=== PATIENT | female | born 1990 | race Caucasian/White ===

== ENCOUNTER → 2019-01-18 | Outpatient (CLI) | payer OTHER ==
--- NOTE | 2019-01-18 13:28 | US ---
EXAMINATION TYPE: Transabdominal DATE OF EXAM: 01/18/2019 1:06 PM COMPARISON: NONE CLINICAL HISTORY: Z36 CONFIRM DATES. dates EXAM PERFORMED: OBTA EXAM MEASUREMENTS: GESTATIONAL AGE / DATING Physician Established: (9 weeks/4 days) EDC: 08/19/2019 Dates by LMP: LMP unknown Dates by First Scan: No previous this is first scan Dates by Current Scan for: (9 weeks/5 days) EDC: 08/18/2019 MATERNAL ANATOMY Uterus: 10.0 x 6.7 x 6.4 Right Ovary: 2.4 x 2.3 x 1.9 Left Ovary: not seen due to bowel gas Post CDS / Adnexa: wnl Presence of free fluid: no Presence of corpus luteal cyst: yes, right = 1.0cm Presence of subchorionic bleed: no GESTATION / SURVEY CRL: 2.9 (9 weeks/5 days) MSD: wnl Yolk Sac (normal less than 6mm): not seen Heart Rate: 174 bpm Rhythm: Normal IUP: Live IUP IMPRESSION: Single live intrauterine has a sonographic age of 9 weeks and 5 days concordant with menstr ual age. Estimated date of delivery of 08/18/2019. Left ovary is not seen due to overlying bowel gas.
== END | disposition home or self-care (01) ==
LOC: RADUSWWP 12:47
PROVIDERS: ATTEND Obstetrics & Gynecology
DX: Z36.9 Encounter for antenatal screening, unspecified (principal); Z3A.09 9 weeks gestation of pregnancy
CPT/HCPCS: 76801

== ENCOUNTER 2019-08-07 11:24 | Inpatient (IN) | payer OTHER ==
[2019-08-07 12:18] LABS: Appearance,Urine Clear (Clear); Bacteria,Urine Rare /hpf; Bilirubin,Urine Negative (Negative); Blood,Urine Negative (Negative); Color,Urine Light Yellow; Glucose,Urine (UA) Negative (Negative); Hyaline Casts,Urine 1 /lpf (0-2); Ketones,Urine Negative (Negative); Leukocyte Esterase,Urine Small (Negative); Mucus,Urine Rare /hpf; Nitrite,Urine Negative (Negative); PH, Urine 7.5 (5.0-8.0); Protein,Urine 2+ (Negative); RBC,Urine <1 /hpf (0-5); Specific Gravity,Urine 1.017 (1.001-1.035); Squamous Epithelial Cell,Urine 7 /hpf (0-4); Urobilinogen,Urine <2.0 mg/dL (<2.0); WBC,Urine 5 /hpf (0-5)
[2019-08-07 12:33] LABS: Creatinine,Urine Random 73.7 mg/dL
[2019-08-07 13:04] LABS: Basophils % (A) 0 %; Eosinophils # (A) 0.2 k/uL (0-0.7); Eosinophils % (A) 2 %; HCT 33.8 % (34.0-46.0); HGB 10.8 gm/dL (11.4-16.0); Hypochromasia Moderate; Lymphocytes # (A) 2.1 k/uL (1.0-4.8); Lymphocytes % (A) 20 %; MCH 25.9 pg (25.0-35.0); MCV 80.8 fL (80.0-100.0); Monocytes # (A) 0.4 k/uL (0-1.0); Monocytes % (A) 3 %; Neutrophils # (A) 7.7 k/uL (1.3-7.7); Neutrophils % (A) 73 %; Platelet Count 283 k/uL (150-450); RBC 4.18 m/uL (3.80-5.40); RDW 15.4 % (11.5-15.5); WBC 10.6 k/uL (3.8-10.6)
[2019-08-07 13:12] LABS: ALT 10 U/L (4-34); AST 21 U/L (14-36); African American GFR (CKD) >90 (>60 ml/min/1.73 sqM); Blood Urea Nitrogen 9 mg/dL (7-17); LDH 474 U/L (313-618); Non-African American GFR(CKD) >90 (>60 ml/min/1.73 sqM); Uric Acid 7.8 mg/dL (3.7-7.4)
[2019-08-07 13:21] LABS: Protein/Creatinine Ratio,Urine 3.392
[2019-08-07] MEDS: LACTATED RINGERS 1,000 ML IV SCH ×2 (13:30→19:05)
[2019-08-07] MEDS ORDERED: OXYTOCIN 10 UNIT/ML 1 ML VIAL IM PRN (13:50)
[2019-08-07] MEDS ORDERED: CARBOPROST TROMETHAMINE 250 MCG/ML 1 ML AMP IM PRN (13:50)
[2019-08-07] MEDS ORDERED: TERBUTALINE 1 MG/ML VIAL SQ PRN (13:50)
[2019-08-07] MEDS ORDERED: METHYLERGONOVINE 0.2 MG/ML 1 ML AMP IM PRN (13:50)
[2019-08-07] MEDS ORDERED: LIDOCAINE 0.5% (PF) 5 MG/ML (50 ML SDV) SQ PRN (13:50)
[2019-08-07] MEDS ORDERED: OXYTOCIN 30 UNITS/500 ML NS 30 UNIT in SALINE 1 500ML.BAG IV SCH (14:00)
[2019-08-07 14:27] LABS: Glucose,Whole Blood 74 mg/dL (75-99)
[2019-08-07] MEDS ORDERED: BUTORPHANOL 1 MG/ML 1 ML VIAL IV PRN (18:22)
[2019-08-07] MEDS ORDERED: ROPIVACAINE 100 MG, fentaNYL (PF) 200 MCG in SODIUM CHLORIDE 0.9% 76 ML EPIDURAL ONE (19:06)
--- NOTE | 2019-08-07 22:38 | P.HPOB ---
History of Present Illness H&P Date: 08/07/19 Chief Complaint: nausea and inc BP 28-year-old presents at 38 weeks and 2 days complaining of nausea. She went to work today, and her doctor's office, where she felt dizzy and nauseous. Her coworkers took her blood pressure and it was elevated so she came to triage. Her blood pressures were elevated here and her PC ratio is 3.3. She is admitted for induction of labor due to preeclampsia. Her cervix is 2 cm dilated, 70% effaced, and -2 station. She is naty rarely. heart tones 135 with moderate variability and reactive. Patient denies headache, chest pain, vision changes, right upper quadrant pain, shortness of breath or calf pain. Review of Systems All systems: negative Constitutional: Denies chills, Denies fever Eyes: denies blurred vision, denies pain Ears, nose, mouth and throat: Denies headache, Denies sore throat Cardiovascular: Denies chest pain, Denies shortness of breath Respiratory: Denies cough Gastrointestinal: Denies abdominal pain, Denies diarrhea, Denies nausea, Denies vomiting Genitourinary: Denies dysuria, Denies hematuria Musculoskeletal: Denies myalgias Integumentary: Denies pruritus, Denies rash Neurological: Denies numbness, Denies weakness Psychiatric: Denies anxiety, Denies depression Endocrine: Denies fatigue, Denies weight change Past Medical History Past Medical History: No Reported History History of Any Multi-Drug Resistant Organisms: None Reported Past Surgical History: No Surgical Hx Reported Additional Past Surgical History / Comment(s): [place] teeth removal Past Anesthesia/Blood Transfusion Reactions: No Reported Reaction Past Psychological History: No Psychological Hx Reported Smoking Status: Never smoker Past Alcohol Use History: None Reported Past Drug Use History: None Reported - Past Family History Mother Family Medical History: Diabetes Mellitus Medications and Allergies Home Medications Medication Instructions Recorded Confirmed Type Pnv No.95/Ferrous Fum/Folic AC 1 tab PO DAILY 08/07/19 08/07/19 History [ Multivitamin Tablet] metFORMIN HCL 500 mg PO BID 08/07/19 08/07/19 History Allergies Allergy/AdvReac Type Severity Reaction Status Date / Time No Known Allergies Allergy Verified 08/07/19 11:41 Exam Osteopathic Statement: *. No significant issues noted on an osteopathic structural exam other than those noted in the History and Physical/Consult. Vital Signs Temp Pulse Resp BP Pulse Ox 08/07/19 13:39 97.3 F L 70 16 148/88 97 08/07/19 12:01 97.3 F L 70 16 148/88 97 Intake and Output 08/07/19 08/07/19 08/07/19 06:59 14:59 22:59 Other: # Voids 2 Weight 94.801 kg Heart: Regular rate and rhythm Lungs: Clear to auscultation bilaterally Abdomen: Soft, nontender Extremities: Negative Homans sign, 2+/4 DTR Results Result Diagrams: 08/07/19 12:53 08/07/19 12:53 Abnormal Lab Results - Last 24 Hours (Table) 08/07/19 08/07/19 08/07/19 Range/Units 11:52 11:52 12:53 Hgb 10.8 L (11.4-16.0) gm/dL Hct 33.8 L (34.0-46.0) % POC Glucose (mg/dL) (75-99) mg/dL Uric Acid (3.7-7.4) mg/dL Urine Protein 2+ H (Negative) Ur Leukocyte Esterase Small H (Negative) Ur Squamous Epith Cells 7 H (0-4) /hpf Urine Bacteria Rare H (None) /hpf Urine Mucus Rare H (None) /hpf U Random Total Protein 252 H (<12) mg/dL 08/07/19 08/07/19 Range/Units 12:53 14:25 Hgb (11.4-16.0) gm/dL Hct (34.0-46.0) % POC Glucose (mg/dL) 74 L (75-99) mg/dL Uric Acid 7.8 H (3.7-7.4) mg/dL Urine Protein (Negative) Ur Leukocyte Esterase (Negative) Ur Squamous Epith Cells (0-4) /hpf Urine Bacteria (None) /hpf Urine Mucus (None) /hpf U Random Total Protein (<12) mg/dL Assessment and Plan (1) Pre-eclampsia affecting , antepartum Current Visit: Yes Status: Acute Code(s): O14.90 - UNSPECIFIED PRE- ECLAMPSIA, UNSPECIFIED TRIMESTER SNOMED Code(s): 230735184 (2) 38 weeks gestation of Current Visit: Yes Status: Acute Code(s): Z3A.38 - 38 WEEKS GESTATION OF JASON [place]AP[place] SNOMED Code(s): 63527837 Plan: 1. Induction of labor with amniotomy and Pitocin 2. Anticipate normal vaginal delivery 3. Monitor blood pressures closely
--- NOTE | 2019-08-07 23:19 | P.MSEPDOC ---
Presenting Problems - Arrival Data Date of Arrival on Unit: 08/07/19 Time of Arrival on Unit: 11:24 Mode of Transport: Ambulatory - Complaint OB-Reason for Admission/Chief Complaint: PIH Comment: cramping, nausea, and high blood pressures Medical History - Information : 2 Para: 0 Term: 0 : 0 Abortions: Spontaneous or Elective: 1 Number of Living Children: 0 - Gestational Age Gestational Age by TAMIR (wks/days): 38 Weeks and 2 Days - History Complications: GDM Review of Systems - Review of Systems Constitutional: No problems Breast: No problems ENT: No problems Cardiovascular: No problems Respiratory: No problems Gastrointestinal: No problems Genitourinary: No problems Musculoskeletal: No problems Neurological: No problems Skin: No problems Comment: bilateral ankle edema Vital Signs - Temperature Temperature: 97.3 F Temperature Source: Temporal Artery Scan - Pulse Pulse Oximetery Pulse Rate: 70 Pulse Assessment Method: Pulse Oximetry - Respirations Respiratory Rate: 16 Oxygen Delivery Method: Room Air O2 Sat by Pulse Oximetry: 97 - Blood Pressure Right Arm Blood Pressure: 148/88 Blood Pressure Mean: 108 Blood Pressure Source: Automatic Cuff Medical Screen Scoring (Pre) - Cervical Exam Dilation: 1-3 cm = 1 Effacement: More than 50% = 2 Membranes: Intact - Uterine Contractions Frequency: > 5 minutes apart = 1 Duration: > 40 seconds = 2 Intensity: N/A - Maternal Vital Signs Maternal Temperature: N/A Maternal Blood Pressure: Systolic >139 = 2 Signs of Preeclampsia: Nausea/Vomiting = 1 Maternal Respirations: N/A - Maternal Trauma Maternal Trauma: N/A - Assessment - Baby A Baseline FHR: 145 Heart Rate - NICHD Category: Category I (Normal) = 0 NST: Reactive Position: N/A Station: N/A - Total Score - Baby A Total Score - Baby A: 9 - Total Score - Baby B Total Score - Baby B: 9 - Total Score - Baby C Total Score - Baby C: 9 - Level of Risk - Baby A Level of Risk - Baby A: Medium (6-9) - Level of Risk - Baby B Level of Risk - Baby B: Medium (6-9) - Level of Risk - Baby C Level of Risk - Baby C: Medium (6-9) Physician Notification (Pre) - Physician Notified Physician Notified Date: 08/07/19 Physician Notified Time: 12:01 New Order Received: Yes - Notification Comment Comment: Dr. Whittington called, report given on maternal and status, pt complains of. cramping, nausea, and increased blood pressures. Pt has no other PIH symptoms, reflexes. are WNL, BPs are 148/88, 148/90, 151/101, and 156/96, NST is reactive. SVE 1.5/60%. Orders to obtain all PIH labs and get BPs every 20 mins. call back with results. 1246-Dr. Whittington on unit, notified of +2 urine protein, no other labs back at this. time. BPs remain 140/80s. Dr. Whittington at bedside to discuss possible IOL with pt. Waiting. on labs at this time. 1315- Labs starting to come back, Dr. Whittington remains on unit and reviewed labs. Orders to admit pt for IOL for preeclampsia. Disposition - Disposition OB Disposition: Admit, LDRP Suite I agree with the RN Medical Screening Exam: Yes Risk & Benefit of care provided described in d/c instruction: Yes Diagnosis: UNSPECIFIED PRE-ECLAMPSIA, THIRD TRIMESTER
[2019-08-08] MEDS ORDERED: diphenhydrAMINE 50 MG CAP PO PRN (03:08)
[2019-08-08] MEDS ORDERED: WITCH HAZEL 1 EACH MED..PAD TOPICAL PRN (03:08)
[2019-08-08] MEDS ORDERED: ZOLPIDEM 5 MG TAB PO PRN (03:08)
[2019-08-08] MEDS ORDERED: diphenhydrAMINE 25 MG CAP PO PRN (03:08)
[2019-08-08] MEDS ORDERED: diphenhydrAMINE 50 MG/ML 1 ML VIAL IVP PRN ×2 (03:08)
[2019-08-08] MEDS ORDERED: HYDROCORTISONE 2.5% RECTAL CREAM 30 GM TUBE RECTAL PRN (03:08)
[2019-08-08] MEDS ORDERED: LANOLIN CREAM 5 GM TUBE TOPICAL PRN (03:08)
[2019-08-08] MEDS ORDERED: ACETAMINOPHEN TAB 325 MG TAB PO PRN (03:08)
[2019-08-08] MEDS ORDERED: BENZOCAINE/MENTHOL SPRAY 1 GM/SPRAY AEROSOL TOPICAL PRN (03:08)
[2019-08-08] MEDS ORDERED: SIMETHICONE 80 MG CHEWABLE PO PRN (03:08)
[2019-08-08] MEDS ORDERED: OXYTOCIN 20 UNITS/1000 ML NS 1,000 ML IV SCH (03:15)
[2019-08-08] MEDS: IBUPROFEN 600 MG TAB PO PRN (18:57)
[2019-08-08] MEDS: SENNOSIDES-DOCUSATE SODIUM 1 EACH TAB PO SCH ×2 (20:56→20:57)
[2019-08-09 06:40] LABS: Basophils % (A) 0 %; Eosinophils # (A) 0.2 k/uL (0-0.7); Eosinophils % (A) 2 %; HCT 26.8 % (34.0-46.0); Hypochromasia Marked; Lymphocytes # (A) 2.9 k/uL (1.0-4.8); Lymphocytes % (A) 23 %; MCH 26.3 pg (25.0-35.0); MCHC 32.1 g/dL (31.0-37.0); MCV 81.9 fL (80.0-100.0); Mean Platelet Volume 9.5; Monocytes # (A) 0.4 k/uL (0-1.0); Monocytes % (A) 3 %; Neutrophils # (A) 8.8 k/uL (1.3-7.7); Neutrophils % (A) 70 %; Platelet Count 233 k/uL (150-450); RBC 3.27 m/uL (3.80-5.40); RDW 15.6 % (11.5-15.5); WBC 12.6 k/uL (3.8-10.6)
[2019-08-09 06:50] LABS: HGB 8.6 gm/dL (11.4-16.0)
[2019-08-09] MEDS: SENNOSIDES-DOCUSATE SODIUM 1 EACH TAB PO SCH (07:48)
[2019-08-09] MEDS: IBUPROFEN 600 MG TAB PO PRN (07:49)
--- NOTE | 2019-08-09 08:03 | P.PROBDLV ---
Vaginal Delivery Note - . Vaginal Delivery Note: 28-year-old presents at 38 weeks and 2 days complaining of nausea. She went to work today, and her doctor's office, where she felt dizzy and nauseous. Her coworkers took her blood pressure and it was elevated so she came to triage. Her blood pressures were elevated here and her PC ratio is 3.3. She is admitted for induction of labor due to preeclampsia. Her cervix is 2 cm dilated, 70% effaced, and -2 station. She is naty rarely. heart tones 135 with moderate variability and reactive. Patient denies headache, chest pain, vision changes, right upper quadrant pain, shortness of breath or calf pain. Pitocin was started. Amniotomy was performed at 1332, clear fluid noted. When she was about 4 cm dilated she got an epidural and was comfortable. At 1:12 AM her cervix was completely dilated and she started pushing. She pushed and delivered a viable female infant over intact perineum under epidural anesthesia at 2:46 AM. Head delivered OA, anterior shoulder delivered gentle downward guidance followed by posterior shoulder and rest of body. Nose and mouth bulb suctioned, cord clamped and cut, infant placed mother's abdomen. Apgars 7, 9, weight 7 pounds. Placenta delivered spontaneously, intact with three-vessel cord at 2:48 AM. Vagina, cervix, and perineum were inspected. First-degree midline laceration was repaired with 3-0 Vicryl. Estimated blood loss 300 mL. Mother and baby in stable condition.
--- NOTE | 2019-08-09 08:07 | P.DS ---
Providers Date of admission: 08/07/19 12:52 Expected date of discharge: 08/09/19 Attending physician: Kelly Whittington Primary care physician: Stated None - Discharge Diagnosis(es) (1) Pre-eclampsia affecting , antepartum Current Visit: Yes Status: Acute (2) 38 weeks gestation of Current Visit: Yes Status: Acute Hospital Course: Patient presented with elevated blood pressures and an elevated PT ratio. She underwent induction of labor for preeclampsia. She had a normal vaginal delivery. her highest blood pressures have been 130s over 90s. We reviewed signs and symptoms of preeclampsia. She knows that if she starts having symptoms she needs to call me right away. Patient will follow-up with me in one week for blood pressure check. Plan - Discharge Summary New Discharge Prescriptions: New Ibuprofen [Motrin] 600 mg PO Q6HR PRN #30 tab PRN Reason: Mild Pain Or Fever >= 100.5 No Action metFORMIN HCL 500 mg PO BID Pnv No.95/Ferrous Fum/Folic AC [ Multivitamin Tablet] 1 tab PO DAILY Discharge Medication List Pnv No.95/Ferrous Fum/Folic AC [ Multivitamin Tablet] 1 tab PO DAILY 08/07/19 [History] metFORMIN HCL 500 mg PO BID 08/07/19 [History] Ibuprofen [Motrin] 600 mg PO Q6HR PRN #30 tab 08/09/19 [Rx] Follow up Appointment(s)/Referral(s): Kelly Whittington DO [Doctor of Osteopathic Medicine] - 1 Week Discharge Disposition: HOME SELF-CARE
[2019-08-09 08:38] VITALS: BP 135/90; PULSE 81; RESP 16; TEMP 98.7
== END 2019-08-09 13:30 | disposition home or self-care (01) | DRG 807 ==
LOC: FBPOP 11:24 → 4FBP 12:52
PROVIDERS: ADMIT Obstetrics & Gynecology; ATTEND Obstetrics & Gynecology
PROC: 10907ZC Drainage of Amniotic Fluid, Therapeutic from Products of Conception, Via Natural or Artificial Opening (ICD-10-PCS; 2019-08-07)
PROC: 3E0R3NZ Introduction of Analgesics, Hypnotics, Sedatives into Spinal Canal, Percutaneous Approach (ICD-10-PCS; 2019-08-07)
PROC: 3E033VJ Introduction of Other Hormone into Peripheral Vein, Percutaneous Approach (ICD-10-PCS; 2019-08-07)
PROC: 00HU33Z Insertion of Infusion Device into Spinal Canal, Percutaneous Approach (ICD-10-PCS; 2019-08-07)
PROC: 0HQ9XZZ Repair Perineum Skin, External Approach (ICD-10-PCS; principal; 2019-08-08)
PROC: 10E0XZZ Delivery of Products of Conception, External Approach (ICD-10-PCS; principal; 2019-08-08)
DX: O14.94 Unspecified pre-eclampsia, complicating childbirth (principal); Z37.0 Single live birth; O70.0 First degree perineal laceration during delivery; R79.1 Abnormal coagulation profile; Z3A.38 38 weeks gestation of pregnancy; Z79.84 Long term (current) use of oral hypoglycemic drugs; Z83.3 Family history of diabetes mellitus
CPT/HCPCS: 59025; 81001; 82565; 82570; 83615; 84156; 84450; 84460; 84520; 84550; 85025; 86850; 86900; 86901; 88307; 99215

== ENCOUNTER → 2019-10-29 | Outpatient (CLI) | payer OTHER | END | disposition home or self-care (01) | LOC: LABWHC1 10:56 | PROVIDERS: ATTEND Nurse Practitioner Family | DX: Z20.828 Contact with and (suspected) exposure to other viral communicable diseases (principal) | CPT/HCPCS: U0003; C9803 ==

== ENCOUNTER 2020-11-16 08:49 | Outpatient (CLI) | payer OTHER ==
[2020-11-16 09:54] VITALS: BP 131/77; PULSE 83; RESP 18; TEMP 98.1
--- NOTE | 2020-11-17 01:18 | P.MSEPDOC ---
Presenting Problems - Arrival Data Date of Arrival on Unit: 11/16/20 Time of Arrival on Unit: 08:55 Mode of Transport: Ambulatory - Complaint OB-Reason for Admission/Chief Complaint: NST Comment: Pt here for NST Medical History - Information : 3 Para: 1 - Gestational Age Gestational Age by TAMIR (wks/days): 34 Weeks and 5 Days - History Complications: GDM Comment: History of preeclpampsia with previous Review of Systems - Review of Systems Constitutional: No problems Breast: No problems ENT: No problems Cardiovascular: No problems Respiratory: No problems Gastrointestinal: No problems Genitourinary: No problems Musculoskeletal: No problems Neurological: No problems Skin: No problems Vital Signs - Temperature Temperature: 98.1 F Temperature Source: Oral - Pulse Pulse Oximetery Pulse Rate: 83 Pulse Assessment Method: Automatic Cuff - Respirations Respiratory Rate: 18 Oxygen Delivery Method: Room Air O2 Sat by Pulse Oximetry: 83 - Blood Pressure Right Arm Blood Pressure: 131/77 Blood Pressure Mean: 95 Blood Pressure Source: Automatic Cuff Medical Screen Scoring - Assessment - Baby A Baseline FHR: 125 Heart Rate - NICHD Category: Category I (Normal) NST: Reactive Physician Notification - Physician Notified Physician Notified Date: 11/16/20 Physician Notified Time: 09:30 Physician: Dr Pk Snow Order Received: Yes (Discharge daren) Maternal Triage Index - Maternal Triage Index Presenting for scheduled procedure w/no complaint: Yes - Scheduled/Requesting Priority 5 Scheduled/Requesting Priority 5: Yes Criteria Met for Priority 5: Pt here for NST Disposition - Disposition OB Disposition: Discharge to home, Written follow up instructions reviewed Discharge Date: 11/16/20 Discharge Time: 09:40 I agree with the RN Medical Screening Exam: Yes Case reviewed; plan agreed upon as documented in EMR&OBIX.: Yes Diagnosis: RELATED CONDITIONS, UNSPECIFIED, SECOND TRIMESTER
== END 2020-11-16 09:40 | disposition home or self-care (01) ==
LOC: FBPOP 08:49
PROVIDERS: ATTEND Obstetrics & Gynecology
DX: O24.419 Gestational diabetes mellitus in pregnancy, unspecified control (principal); Z3A.34 34 weeks gestation of pregnancy
CPT/HCPCS: 59025

== ENCOUNTER 2020-11-24 07:35 | Outpatient (CLI) | payer OTHER ==
[2020-11-24 08:47] VITALS: BP 117/60; PULSE 84; RESP 16; TEMP 96.8
== END 2020-11-24 08:32 | disposition home or self-care (01) ==
LOC: FBPOP 07:35
PROVIDERS: ATTEND Obstetrics & Gynecology
DX: O24.419 Gestational diabetes mellitus in pregnancy, unspecified control (principal); Z3A.35 35 weeks gestation of pregnancy
CPT/HCPCS: 59025

== ENCOUNTER 2020-12-17 05:59 | Inpatient (IN) | payer OTHER ==
[2020-12-17] MEDS ORDERED: OXYTOCIN 10 UNIT/ML 1 ML VIAL IM PRN (06:37)
[2020-12-17] MEDS ORDERED: CARBOPROST TROMETHAMINE 250 MCG/ML 1 ML AMP IM PRN (06:37)
[2020-12-17] MEDS ORDERED: METHYLERGONOVINE 0.2 MG/ML 1 ML AMP IM PRN (06:37)
[2020-12-17] MEDS ORDERED: TERBUTALINE 1 MG/ML VIAL SQ PRN (06:37)
[2020-12-17] MEDS ORDERED: LIDOCAINE 0.5% (PF) 5 MG/ML (50 ML SDV) SQ PRN (06:37)
[2020-12-17 06:42] LABS: Glucose,Whole Blood 100 mg/dL (75-99)
[2020-12-17] MEDS ORDERED: LACTATED RINGERS 1,000 ML IV SCH (06:45)
[2020-12-17] MEDS ORDERED: OXYTOCIN 30 UNITS/500 ML NS 30 UNIT in SALINE 1 500ML.BAG IV SCH (06:45)
[2020-12-17 06:56] LABS: Basophils % (A) 0 %; Eosinophils # (A) 0.1 k/uL (0-0.7); Eosinophils % (A) 1 %; HCT 33.2 % (34.0-46.0); HGB 10.4 gm/dL (11.4-16.0); Hypochromasia Slight; Lymphocytes # (A) 2.3 k/uL (1.0-4.8); Lymphocytes % (A) 23 %; MCH 25.2 pg (25.0-35.0); MCHC 31.3 g/dL (31.0-37.0); MCV 80.3 fL (80.0-100.0); Mean Platelet Volume 8.3; Monocytes # (A) 0.3 k/uL (0-1.0); Monocytes % (A) 3 %; Neutrophils # (A) 7.2 k/uL (1.3-7.7); Neutrophils % (A) 71 %; Platelet Count 307 k/uL (150-450); RBC 4.13 m/uL (3.80-5.40); RDW 15.3 % (11.5-15.5); WBC 10.1 k/uL (3.8-10.6)
[2020-12-17] MEDS: LACTATED RINGERS 1,000 ML IV SCH ×2 (07:37→12:35)
[2020-12-17 08:51] LABS: Glucose,Whole Blood 93 mg/dL (75-99)
[2020-12-17] MEDS ORDERED: BUTORPHANOL 1 MG/ML 1 ML VIAL IV PRN (10:20)
[2020-12-17 10:57] LABS: Glucose,Whole Blood 83 mg/dL (75-99)
[2020-12-17] MEDS ORDERED: SODIUM CHLORIDE 0.9% 100 ML BAG ONE (12:16)
[2020-12-17] MEDS ORDERED: fentaNYL (PF) 50 MCG/ML 5 ML AMP ONE (12:16)
[2020-12-17] MEDS ORDERED: ROPIVACAINE 5MG/ML 20ML VIAL ONE (12:16)
[2020-12-17] MEDS ORDERED: ROPIVACAINE 100 MG, fentaNYL (PF). 200 MCG in SODIUM CHLORIDE 0.9% 76 ML EPIDURAL ONE (12:41)
[2020-12-17 12:42] LABS: Glucose,Whole Blood 87 mg/dL (75-99)
[2020-12-17 14:21] LABS: Glucose,Whole Blood 74 mg/dL (75-99)
[2020-12-17 15:41] LABS: Glucose,Whole Blood 66 mg/dL (75-99)
[2020-12-17] MEDS ORDERED: diphenhydrAMINE 50 MG/ML 1 ML VIAL IVP PRN ×2 (17:16)
[2020-12-17] MEDS ORDERED: ZOLPIDEM 5 MG TAB PO PRN (17:16)
[2020-12-17] MEDS ORDERED: diphenhydrAMINE 50 MG CAP PO PRN (17:16)
[2020-12-17] MEDS ORDERED: SIMETHICONE 80 MG CHEWABLE PO PRN (17:16)
[2020-12-17] MEDS ORDERED: IBUPROFEN 600 MG TAB PO PRN (17:16)
[2020-12-17] MEDS ORDERED: ACETAMINOPHEN TAB 325 MG TAB PO PRN (17:16)
[2020-12-17] MEDS ORDERED: LANOLIN CREAM 5 GM TUBE TOPICAL PRN (17:16)
[2020-12-17] MEDS ORDERED: diphenhydrAMINE 25 MG CAP PO PRN (17:16)
[2020-12-17] MEDS ORDERED: BENZOCAINE/MENTHOL SPRAY 1 GM/SPRAY AEROSOL TOPICAL PRN (17:16)
[2020-12-17] MEDS ORDERED: HYDROCORTISONE 2.5% RECTAL CREAM 30 GM TUBE RECTAL PRN (17:16)
[2020-12-17 18:51] VITALS: RESP 16
[2020-12-17] MEDS: SENNOSIDES-DOCUSATE SODIUM 1 EACH TAB PO SCH (19:50)
[2020-12-18 07:08] LABS: Basophils % (A) 0 %; Eosinophils % (A) 0 %; HGB 9.2 gm/dL (11.4-16.0); Hypochromasia Moderate; Lymphocytes # (A) 2.2 k/uL (1.0-4.8); Lymphocytes % (A) 17 %; MCHC 31.7 g/dL (31.0-37.0); Mean Platelet Volume 8.6; Monocytes # (A) 0.5 k/uL (0-1.0); Monocytes % (A) 4 %; Neutrophils # (A) 9.8 k/uL (1.3-7.7); Neutrophils % (A) 77 %; Platelet Count 250 k/uL (150-450); RBC 3.54 m/uL (3.80-5.40); RDW 15.3 % (11.5-15.5); WBC 12.6 k/uL (3.8-10.6)
--- NOTE | 2020-12-18 07:44 | P.HPOB ---
History of Present Illness H&P Date: 12/18/20 Chief Complaint: Induction of labor 30-year-old at 39 weeks presents for induction of labor. She does have gestational diabetes on metformin. Cervix is 1-2 cm dilated, 70% effaced, and - 2 station. She is naty irregularly. heart tones 140 with moderate variability and reactive. Review of Systems All systems: negative Constitutional: Denies chills, Denies fever Eyes: denies blurred vision, denies pain Ears, nose, mouth and throat: Denies headache, Denies sore throat Cardiovascular: Denies chest pain, Denies shortness of breath Respiratory: Denies cough Gastrointestinal: Denies abdominal pain, Denies diarrhea, Denies nausea, Denies vomiting Genitourinary: Denies dysuria, Denies hematuria Musculoskeletal: Denies myalgias Integumentary: Denies pruritus, Denies rash Neurological: Denies numbness, Denies weakness Psychiatric: Denies anxiety, Denies depression Endocrine: Denies fatigue, Denies weight change Past Medical History Past Medical History: No Reported History Additional Past Medical History / Comment(s): Subjective history: She has had one previous vaginal delivery in 1 miscarriage. This is her third and she's had care with me since the first trimester. She was managed with maternal- medicine for her gestational diabetes and she is on metformin. Blood type is A+, amylase negative, rubella immune, breast B-, GBS negative, HIV nonreactive, RPR nonreactive. History of Any Multi-Drug Resistant Organisms: None Reported Past Surgical History: No Surgical Hx Reported Additional Past Surgical History / Comment(s): [place] teeth removal Past Anesthesia/Blood Transfusion Reactions: No Reported Reaction Past Psychological History: No Psychological Hx Reported Smoking Status: Never smoker Past Alcohol Use History: None Reported Past Drug Use History: None Reported - Past Family History Mother Family Medical History: Diabetes Mellitus Medications and Allergies Home Medications Medication Instructions Recorded Confirmed Type Pnv No.95/Ferrous Fum/Folic AC 1 tab PO DAILY 08/07/19 12/17/20 History [ Multivitamin Tablet] metFORMIN HCL 1,000 mg PO BID 08/07/19 12/17/20 History Allergies Allergy/AdvReac Type Severity Reaction Status Date / Time No Known Allergies Allergy Verified 11/16/20 08:54 Exam Osteopathic Statement: *. No significant issues noted on an osteopathic structural exam other than those noted in the History and Physical/Consult. Vital Signs Temp Pulse Resp BP 12/18/20 00:00 98.9 F 99 16 124/62 12/17/20 20:00 99.0 F 108 H 16 139/78 12/17/20 18:45 100 16 134/61 12/17/20 18:15 99 17 129/60 12/17/20 17:48 92 17 116/63 12/17/20 17:30 90 17 126/65 12/17/20 17:14 101 H 17 123/63 12/17/20 17:00 88 16 130/60 12/17/20 16:45 98.4 F 93 16 134/67 Intake and Output 12/17/20 12/18/20 12/18/20 22:59 06:59 14:59 Intake Total 186.916 Output Total 200 Balance -13.084 Intake: Intake, IV Titration 186.916 Amount Oxytocin 30 Units/500 ml 186.916 Ns 30 unit In Saline 1 500ml.bag @ Per Protocol IV .Q0M [facility] Rx#:[id number] Output: Urine 100 Estimated Blood Loss 100 Other: Voiding Method Toilet # Voids 1 2 Heart: Regular rate and rhythm Lungs: Clear to auscultation bilaterally Abdomen: Soft, nontender Extremities: Negative Homans sign Results Result Diagrams: 12/18/20 06:21 Abnormal Lab Results - Last 24 Hours (Table) 12/17/20 12/17/20 12/18/20 Range/Units 14:20 15:39 06:21 WBC 12.6 H (3.8-10.6) k/uL RBC 3.54 L (3.80-5.40) m/uL Hgb 9.2 L (11.4-16.0) gm/dL Hct 29.0 L (34.0-46.0) % Neutrophils # 9.8 H (1.3-7.7) k/uL POC Glucose (mg/dL) 74 L 66 L (75-99) mg/dL Assessment and Plan (1) Gestational diabetes Current Visit: Yes Status: Acute Code(s): O24.419 - GESTATIONAL DIABETES MELLITUS IN , UNSP CONTROL SNOMED Code(s): 85413737 (2) Encounter for induction of labor Current Visit: Yes Status: Acute Code(s): Z34.90 - ENCNTR FOR SUPRVSN OF NORMAL , UNSP, UNSP TRIMESTER SNOMED Code(s): 108594872 Plan: 1. Induction of labor with amniotomy and Pitocin 2. Anticipate normal vaginal delivery 3. Monitor blood sugars during labor
--- NOTE | 2020-12-18 07:55 | P.PROBDLV ---
Vaginal Delivery Note - . Vaginal Delivery Note: 30-year-old at 39 weeks presents for induction of labor. She does have gestational diabetes on metformin. Cervix is 1-2 cm dilated, 70% effaced, and - 2 station. She is naty irregularly. heart tones 140 with moderate variability and reactive. Amniotomy performed at 7 AM and clear fluid noted. When she was uncomfortable she did get an epidural. Her cervix was completely dilated at 1610. She pushed, delivered a viable male over intact perineum under epidural anesthesia at 1622. Head delivered OA, anterior shoulder delivered gentle downward guidance of the posterior shoulder and rest of body. Nose and mouth bulb suctioned, cord clamped and cut, infant placed mother's abdomen. Apgars 8, 9, weight 7 lbs. 9 oz. Placenta delivered spontaneously, intact with three-vessel cord at 1624. Vagina, cervix, and perineum were inspected. Second-degree midline laceration was repaired with 3-0 Vicryl. Quantitative blood loss 80 mL. Mother and baby in stable condition.
--- NOTE | 2020-12-18 07:56 | P.DS ---
Providers Date of admission: 12/17/20 05:59 Expected date of discharge: 12/18/20 Attending physician: Kelly Whittington Primary care physician: Stated None - Discharge Diagnosis(es) (1) Gestational diabetes Current Visit: Yes Status: Resolved (2) Encounter for induction of labor Current Visit: Yes Status: Resolved (3) Normal vaginal delivery Current Visit: Yes Status: Acute Hospital Course: Patient presented for induction of labor. She underwent a normal vaginal delivery. course was uncomplicated. She denies nausea, vomiting, chest pain, shortness of breath or any calf pain. Patient will be discharged home day #1 in stable condition to follow-up with me in 6 weeks. Plan - Discharge Summary New Discharge Prescriptions: New Ibuprofen [Motrin] 600 mg PO Q6HR PRN #30 tab PRN Reason: Mild Pain (Scale 1 To 3) No Action metFORMIN HCL 1,000 mg PO BID Pnv No.95/Ferrous Fum/Folic AC [ Multivitamin Tablet] 1 tab PO DAILY Discharge Medication List Pnv No.95/Ferrous Fum/Folic AC [ Multivitamin Tablet] 1 tab PO DAILY 08/07/19 [History] metFORMIN HCL 1,000 mg PO BID 08/07/19 [History] Ibuprofen [Motrin] 600 mg PO Q6HR PRN #30 tab 12/18/20 [Rx] Follow up Appointment(s)/Referral(s): Kelly Whittington DO [Doctor of Osteopathic Medicine] - 01/25/21 10:45 am Discharge Disposition: HOME SELF-CARE
[2020-12-18] MEDS: SENNOSIDES-DOCUSATE SODIUM 1 EACH TAB PO SCH (09:40)
[2020-12-18 15:22] VITALS: BP 123/72; PULSE 84; TEMP 98.2
== END 2020-12-18 17:50 | disposition home or self-care (01) | DRG 807 ==
LOC: 4FBP 05:59
PROVIDERS: ADMIT Obstetrics & Gynecology; ATTEND Obstetrics & Gynecology
PROC: 10E0XZZ Delivery of Products of Conception, External Approach (ICD-10-PCS; principal; 2020-12-17)
PROC: 0KQM0ZZ Repair Perineum Muscle, Open Approach (ICD-10-PCS; 2020-12-17)
PROC: 10907ZC Drainage of Amniotic Fluid, Therapeutic from Products of Conception, Via Natural or Artificial Opening (ICD-10-PCS; 2020-12-17)
PROC: 3E033VJ Introduction of Other Hormone into Peripheral Vein, Percutaneous Approach (ICD-10-PCS; 2020-12-17)
DX: O24.425 Gestational diabetes mellitus in childbirth, controlled by oral hypoglycemic drugs (principal); Z37.0 Single live birth; O70.1 Second degree perineal laceration during delivery; Z3A.39 39 weeks gestation of pregnancy; Z83.3 Family history of diabetes mellitus
CPT/HCPCS: 85025; 86850; 86900; 86901